=== PATIENT | male | born 1985 | race Caucasian/White ===

== ENCOUNTER 2017-10-20 07:10 | Observation (INO) | payer OTHER ==
--- NOTE | 2017-10-17 15:31 | PREOP HP ---
DATE OF SERVICE: 10/20/2017 HISTORY OF PRESENT ILLNESS: The patient is a pleasant 32-year-old who is having difficulty with left shoulder pain. He notes numb and tingling sensation, which radiates into his left forearm, down into his left thumb and index finger. He said he has had problems with neck and left arm pain in 2013 and underwent a cervical epidural steroid injections and improved. Again in 2017, the problem began again and became more severe. In addition to the pain in his left arm, he now also notices problems with his left medial scapular region. There has been no inciting event. Before epidural steroid injections, he rated his pain as a 9/10. Currently, turning his head to the right increases his pain. He said the left upper extremity also increases his pain. He has been taking Tylenol and Lortab. He had physical therapy in the past for this problem as well as chiropractic treatment. More recently, he has had epidural steroid injections. PAST MEDICAL HISTORY: Hypertension. PAST SURGICAL HISTORY: T and A and turbinate reduction in 2013. FAMILY HISTORY: Heart problem/disease and hypertension. SOCIAL HISTORY: Self-employed as a dias/rancher. . Exercises weekly. Denies substance abuse. Denies tobacco use. Drinks alcohol 1-2 times per week. Drinks coffee daily. ALLERGIES: TO SHELLFISH. CURRENT MEDICATIONS: Tylenol and Lortab. REVIEW OF SYSTEMS: A 12-point review of systems was obtained and is noncontributory except for that mentioned above. PHYSICAL EXAMINATION: NEUROSURGERY EXAMINATION: GENERAL APPEARANCE: Alert, pleasant, no acute distress. HEAD: Normocephalic, atraumatic. NECK AND THYROID: [id number] tenderness with palpation of posterior cervical region. SKIN: Warm and dry. MUSCULOSKELETAL: Cervical paraspinal muscle bulk is normal, cervical range of motion is restricted, normal range of motion of the upper extremities bilaterally. EXTREMITIES: No clubbing, cyanosis or edema. NEUROLOGIC: Alert and oriented x 3, normal recent and remote memory. Strength 5/5 in bilateral upper and lower extremities except for 4+/5 strength in his left biceps and left deltoid. Sensory is intact to light touch in the upper and lower extremities except for decrease involving his left thumb and index finger, reflexes were trace and symmetric in the upper and lower extremities bilaterally, normal gait. IMAGING: Reviewed. I reviewed his cervical MRI scan. On that study, there was a large left posterior paracentral disk protrusion at C5-C6 which is associated with moderate stenosis in the left side and severe left neural foraminal narrowing. ASSESSMENT: 1. Cervical disk disorders at C5-C6 with radiculopathy. 2. Cervicalgia. 3. Spinal stenosis, cervical region. PLAN: Primarily, the problems at C5-C6 are responsible for his left cervical radiculopathy, which is severe. He does have left arm weakness. He has failed conservative measures. The problem has been present for several years intermittently. I recommended an anterior cervical surgery. I told him that I thought an artificial disk operation, if it could be performed, will be best for him. He is 32 years of age. He understands. He would like to go ahead. We will make the arrangements. EDELMIRA RUSSELL MD DR: ALEIHSA/aide JOB#: [id number] / [id number]
[2017-10-20] VITALS (9 sets, daily range): BP systolic 134–160; BP diastolic 60–93
[~2017-10-20] VITALS: Ht 200.7 cm; Wt 136.1 kg
[~2017-10-20 07:10] MED LIST: ACET500T68 PO; BUPIVAC MPF-EPI 0.5%-1:200000 30 ML VIAL. ONE; GELATIN SPONGE SIZE 100. ONE; HYDROmorphone 2 MG/ML VIAL IV PRN; IBUP-1060 PO; IV RINGERS,LACTATED 1000ML 1,000 ML IV SCH; LIDOCAINE 1% PF 2 ML VIAL. ID PRN; LORA10TA3 PO; MORPHINE SULFATE 2 MG/ML DISP.SYRIN. IV PRN; ONDANSETRON PF 4 MG/2 ML VIAL. IV PRN; PROCHLORPERAZINE 10 MG/2 ML VIAL. IV PRN; THROMBIN TOPICAL 20,000 UNIT SPRAY.SYRN KIT TP ONE; fentaNYL PF VIAL 100 MCG/2 ML VIAL IV PRN
[2017-10-20] MEDS ORDERED: BACITRACIN 50,000 UNIT in IV NORMAL SALINE 1000ML BAG 1,000 ML IRR ONE (08:00)
[2017-10-20] MEDS ORDERED: PROPOFOL 100 ML IV ONE (08:00)
[2017-10-20] MEDS ORDERED: ceFAZolin 2GM PREMIX 2 GM/50 ML BAG IV ONE (08:00)
[2017-10-20] MEDS ORDERED: DESFLURANE > 120 MINUTES IH ONE (08:08)
[2017-10-20] MEDS ORDERED: GLYCOPYRROLATE 1 MG/5 ML VIAL. ONE (08:09)
[2017-10-20] MEDS ORDERED: NEOSTIGMINE METHYLSULFATE 5 MG/5 ML SYRINGE. ONE (08:09)
[2017-10-20] MEDS ORDERED: DEXAMETHASONE SOD PHOS 20 MG/5 ML VIAL. ONE (08:09)
[2017-10-20] MEDS ORDERED: LIDOCAINE 2% PF Vial for OR 5 ML VIAL. ONE (08:09)
[2017-10-20] MEDS ORDERED: ROCURONIUM 50 MG/5 ML VIAL. ONE (08:09)
[2017-10-20] MEDS ORDERED: ONDANSETRON PF 4 MG/2 ML VIAL. ONE (08:09)
[2017-10-20] MEDS ORDERED: PROPOFOL 20 ML IV ONE (08:09)
[2017-10-20] MEDS ORDERED: REMIFENTANIL 2 MG VIAL. IV ONE (08:09)
[2017-10-20] MEDS ORDERED: fentaNYL PF VIAL 100 MCG/2 ML VIAL ONE ×2 (08:09→12:44)
[2017-10-20] MEDS ORDERED: MIDAZOLAM HCL/PF 2 MG/2 ML VIAL. ONE (08:09)
[2017-10-20] MEDS ORDERED: PHENYLEPHRINE 10 MG/ML VIAL. ONE (08:10)
[2017-10-20] MEDS ORDERED: 0.9 % SODIUM CHLORIDE 50 ML VIAL. IJ ONE (08:10)
[2017-10-20] MEDS ORDERED: REMIFENTANIL 1 MG VIAL. IV ONE (10:13)
[2017-10-20] MEDS ORDERED: PROPOFOL 50 ML IV ONE (10:13)
[2017-10-20] MEDS: fentaNYL PF VIAL 100 MCG/2 ML VIAL IV PRN ×2 (13:00→13:32)
[2017-10-20] MEDS ORDERED: POTASSIUM CL 20MEQ D5-0.45NACL 1,000 ML IV SCH (13:05)
[2017-10-20] MEDS ORDERED: ZOLPIDEM 5 MG TABLET. PO PRN (13:15)
[2017-10-20] MEDS ORDERED: ACETAMINOPHEN 325 MG TABLET. PO PRN (13:15)
[2017-10-20] MEDS ORDERED: diphenhydrAMINE HCL 25 MG CAPSULE PO PRN (13:15)
[2017-10-20] MEDS ORDERED: ONDANSETRON PF 4 MG/2 ML VIAL. IV PRN (13:15)
[2017-10-20] MEDS ORDERED: CALCIUM CARBONATE 500 MG TAB.CHEW PO PRN (13:15)
[2017-10-20] MEDS ORDERED: MAGNESIUM HYDROXIDE 2,400 MG/30 ML ORAL.SUSP. PO PRN (13:15)
[2017-10-20] MEDS ORDERED: 0.9 % SODIUM CHLORIDE 10 ML DISP.SYRIN. IV PRN (13:15)
[2017-10-20] MEDS ORDERED: fentaNYL PF VIAL 100 MCG/2 ML VIAL IV PRN ×2 (13:15)
[2017-10-20] MEDS ORDERED: MAG HYDROX/ALUMINUM HYD/SIMETH 30 ML ORAL.SUSP PO PRN (13:15)
[2017-10-20] MEDS ORDERED: HYDROcodone/APAP 7.5/325MG 1 TAB TABLET PO PRN ×2 (13:15)
[2017-10-20] MEDS ORDERED: diphenhydrAMINE 50 MG/ML VIAL IV PRN (13:15)
[2017-10-20] MEDS: METHOCARBAMOL 750 MG TABLET PO SCH ×2 (14:17→20:25)
[2017-10-20] MEDS ORDERED: FLU VACC QS2017-18 (36MOS+)/PF 0.5 ML SYRINGE. VAX IM ONE (16:00)
[2017-10-20] MEDS: ceFAZolin SODIUM IV Push 1 GM VIAL. IVP SCH (16:20)
[2017-10-20] MEDS ORDERED: ceFAZolin SODIUM 1 GM in IV DEXTROSE 5% 50 ML IV SCH (17:30)
[2017-10-20] MEDS: DOCUSATE SODIUM 100 MG CAPSULE. PO SCH (20:25)
[2017-10-20] MEDS ORDERED: INFLUENZA VAX SCREEN BY RX. MC ONE (21:00)
[2017-10-21] MEDS: ceFAZolin SODIUM IV Push 1 GM VIAL. IVP SCH ×2 (02:31→07:41)
[2017-10-21 02:41] VITALS: BP 133/77
[2017-10-21 07:33] VITALS: BP 123/85
[2017-10-21] MEDS: METHOCARBAMOL 750 MG TABLET PO SCH (07:53)
[2017-10-21] MEDS: DOCUSATE SODIUM 100 MG CAPSULE. PO SCH (07:53)
--- NOTE | 2017-10-21 10:01 | DISCH ---
DISCHARGE INSTRUCTIONS Condition on Discharge Condition on Discharge: Stable Activity After Discharge Activity Instructions for Disc: Activity as tolerated, Avoid exertion Other activity instructions: no driving for a week Bathing Instructions: Shower-keep dressing dry Lifting Instructions after Dis: No heavy lifting, No pulling or pushing, Do not lift >10 pounds Diet after Discharge Additional Diet Restrictions: resume home diet Wound Incision Care Wound/Incision Care: Ice to area for comfort Other wound/incision instructi: may remove dressing in 48 hrs if dry then may shower- no soaking Contacting the after DC Call your doctor for: Concerns you may have Follow-Up Follow up with: Dr. Russell's nurse in 2 weeks [phone] EDELMIRA RUSSELL MD Oct 21, 2017 10:01
[2017-10-21] MEDS ORDERED: DOCU-109 PO (10:03)
[2017-10-21] MEDS ORDERED: HYDR-2762 PO (10:03)
[2017-10-21] MEDS ORDERED: METH750T2 PO (10:03)
--- NOTE | 2017-10-21 10:07 | PDOC ---
PROGRESS NOTES Subjective Subjective up ambulating in [place] feels good mild tightness in neck and shoulders Objective Objective Vital Signs Date Time Temp Pulse Resp B/P (MAP) Pulse Ox O2 Delivery O2 Flow Rate FiO2 10/21/17 07:33 98.2 69 123/85 (98) 95 Room Air 98.2 10/21/17 02:41 18 10/20/17 13:40 1.0 Intake and Output 10/21/17 07:00 Intake Total 2240 ml Output Total 300 ml Balance 1940 ml Intake Oral 2240 ml Output Urine Total 300 ml # Voids 7 Physical Exam General: Alert, Oriented X3, Cooperative MUSCULOSKELETAL: Other (MOODY) Neuro: Normal speech Skin: Other (dressing C,D,I, flat) Plan Plan of Care may dc home f/u 2 weeks Comment Review of Relevant I have reviewed the following items lori (where applicable) has been applied. Medications Current Medications Ondansetron HCl (Zofran) 4 mg PRN Q6HRS PRN IV NAUSEA/VOMITING; Start at 07:00; Stop 10/21/17 at 06:59; Status DC Fentanyl Citrate (Fentanyl 2ml Vial) 25 mcg PRN Q5MIN PRN IV MILD PAIN; Start 10/20/17 at 07:00; Stop 10/21/17 at 06:59; Status DC Fentanyl Citrate (Fentanyl 2ml Vial) 50 mcg PRN Q5MIN PRN IV MODERATE PAIN Last administered on 10/20/17 13:00; Start 10/20/17 at 07:00; Stop 10/21/17 at 06:59; Status DC Morphine Sulfate 1 mg PRN Q10MIN PRN IV SEVERE PAIN; Start 10/20/17 at 07:00; Stop 10/21/17 at 06:59; Status DC Ringer's Solution 1,000 ml @ 0 mls/hr Q0M IV Last administered on 10/20/17 07:51; Start 10/20/17 at 07:00; Stop 10/20/17 at 18:59; Status DC Lidocaine HCl (Xylocaine-Mpf 1% Vial) 2 ml PRN 1X PRN ID PRIOR TO IV START; Start 10/20/17 at 07:00; Stop 10/21/17 at 06:59; Status DC Hydromorphone HCl (Dilaudid) 0.5 mg PRN Q10MIN PRN IV SEV PAIN, Second choice; Start 10/20/17 at 07:00; Stop 10/21/17 at 06:59; Status DC Prochlorperazine Edisylate (Compazine) 5 mg PACU PRN PRN IV NAUSEA, MRX1; Start 10/20/17 at 07:00; Stop 10/21/17 at 06:59; Status DC Bacitracin 86095 unit/Sodium Chloride 1,000 ml @ 1,000 mls/hr 1X PERIOP ONCE IRR Last administered on 10/20/17 09:56; Start 10/20/17 at 08:00; Stop 09/26 at 08:59; Status DC Cefazolin Sodium/ Dextrose 50 ml @ 100 mls/hr 1X PREOP PRN IV PRIOR TO SURGERY Last administered on 10/20/17 09:23; Start 10/20/17 at 08:00 Gelatin (Gelfoam Size 100) 1 each STK-MED ONCE .ROUTE Last administered on 09:56; Start 10/20/17 at 07:02; Stop 10/20/17 at 07:03; Status DC Bupivacaine HCl/ Epinephrine Bitart (Sensorcain-Mpf Epi 0.5%-1:070116) 30 ml STK -MED ONCE .ROUTE Last administered on 10/20/17 09:56; Start 10/20/17 at 07: 03; Stop 10/20/17 at 07:04; Status DC Thrombin 20,000 unit STK-MED ONCE TP Last administered on 10/20/17 09:56; Start 10/20/17 at 07:03; Stop 10/20/17 at 07:04; Status DC Propofol 100 ml @ As Directed STK-MED ONCE IV ; Start 10/20/17 at 08:00; Stop 10/20/17 at 08:02; Status DC Desflurane (Suprane) 90 ml STK-MED ONCE IH ; Start 10/20/17 at 08:08; Stop 09/26 at 08:09; Status DC Midazolam HCl (Versed) 2 mg STK-MED ONCE .ROUTE ; Start 10/20/17 at 08:09; Stop 10/20/17 at 08:10; Status DC Fentanyl Citrate (Fentanyl 2ml Vial) 100 mcg STK-MED ONCE .ROUTE ; Start at 08:09; Stop 10/20/17 at 08:10; Status DC Remifentanil HCl (Ultiva) 2 mg STK-MED ONCE IV ; Start 10/20/17 at 08:09; Stop 10/20/17 at 08:10; Status DC Glycopyrrolate (Robinul) 1 mg STK-MED ONCE .ROUTE ; Start 10/20/17 at 08:09; Stop 10/20/17 at 08:10; Status DC Neostigmine Methylsulfate 5 mg STK-MED ONCE .ROUTE ; Start 10/20/17 at 08:09; Stop 10/20/17 at 08:10; Status DC Rocuronium Gill (Zemuron) 50 mg STK-MED ONCE .ROUTE ; Start 10/20/17 at 08: 09; Stop 10/20/17 at 08:10; Status DC Propofol 20 ml @ As Directed STK-MED ONCE IV ; Start 10/20/17 at 08:09; Stop 10/20/17 at 08:10; Status DC Lidocaine HCl (Lidocaine Pf 2% Vial) 5 ml STK-MED ONCE .ROUTE ; Start 10/20/17 at 08:09; Stop 10/20/17 at 08:10; Status DC Dexamethasone Sodium Phosphate (Decadron) 20 mg STK-MED ONCE .ROUTE ; Start 09/26 at 08:09; Stop 10/20/17 at 08:10; Status DC Ondansetron HCl (Zofran) 4 mg STK-MED ONCE .ROUTE ; Start 10/20/17 at 08:09; Stop 10/20/17 at 08:10; Status DC Phenylephrine HCl (Vaughn-Synephrine Inj) 10 mg STK-MED ONCE .ROUTE ; Start at 08:10; Stop 10/20/17 at 08:11; Status DC Sodium Chloride (Sodium Chloride) 50 ml STK-MED ONCE IJ ; Start 10/20/17 at 08: 10; Stop 10/20/17 at 08:11; Status DC Cefazolin Sodium 50 ml @ As Directed STK-MED ONCE IV ; Start 10/20/17 at 09:42 ; Stop 10/20/17 at 09:43; Status DC Propofol 50 ml @ As Directed STK-MED ONCE IV ; Start 10/20/17 at 10:13; Stop 10/20/17 at 10:14; Status DC Remifentanil HCl (Ultiva) 1 mg STK-MED ONCE IV ; Start 10/20/17 at 10:13; Stop 10/20/17 at 10:14; Status DC Fentanyl Citrate (Fentanyl 2ml Vial) 100 mcg STK-MED ONCE .ROUTE ; Start at 12:44; Stop 10/20/17 at 12:45; Status DC Fentanyl Citrate (Fentanyl 2ml Vial) 50 mcg PRN Q2HR PRN IV PAIN; Start at 13:15 Fentanyl Citrate (Fentanyl 2ml Vial) 25 mcg PRN Q2HR PRN IV PAIN; Start at 13:15 Acetaminophen/ Hydrocodone Bitart (Lortab 7.5/325) 1 tab PRN Q6HRS PRN PO PAIN ; Start 10/20/17 at 13:15 Acetaminophen/ Hydrocodone Bitart (Lortab 7.5/325) 2 tab PRN Q6HRS PRN PO PAIN Last administered on 10/20/17t 22:39; Start 10/20/17 at 13:15 Acetaminophen (Tylenol) 650 mg PRN Q6HRS PRN PO MILD PAIN / TEMP; Start at 13:15 Al Hydroxide/Mg Hydroxide (Mylanta Plus Xs) 30 ml PRN Q3HRS PRN PO HEARTBURN / GAS; Start 10/20/17 at 13:15 Calcium Carbonate/ Glycine (Tums) 500 mg PRN Q3HRS PRN PO INDIGESTION; Start 10/20/17 at 13:15 Diphenhydramine HCl (Benadryl) 25 mg PRN Q6HRS PRN PO ITCHING; Start 10/20/17 at 13:15 Diphenhydramine HCl (Benadryl) 25 mg PRN Q6HRS PRN IV ITCHING; Start 10/20/17 at 13:15 Zolpidem Tartrate (Ambien) 5 mg PRN QHS PRN PO INSOMNIA, MAY REPEAT IN 1HR; Start 10/20/17 at 13:15 Sodium Chloride (Normal Saline Flush) 3 ml QSHIFT PRN IV AFTER MEDS AND BLOOD DRAWS; Start 10/20/17 at 13:15 Potassium Chloride/Dextrose/ Sod Cl 1,000 ml @ 75 mls/hr [id number] IV ; Start at 13:05; Stop 10/20/17 at 16:56; Status DC Methocarbamol (Robaxin) 750 mg TID PO Last administered on 10/21/17 07:53; Start 10/20/17 at 14:00 Docusate Sodium (Colace) 100 mg BID PO Last administered on 10/21/17 07:53; Start 10/20/17 at 21:00 Magnesium Hydroxide (Milk Of Magnesia) 2,400 mg PRN Q12HR PRN PO CONSTIPATION; Start 10/20/17 at 13:15 Ondansetron HCl (Zofran) 4 mg PRN Q6HRS PRN IV NAUESA, 1ST CHOICE; Start 10/20 at 13:15 Cefazolin Sodium 1 gm/Dextrose 50 ml @ 100 mls/hr Q8H IV ; Start 10/20/17 at 17:30; Stop 10/21/17 at 09:59; Status Cancel Cefazolin Sodium (Ancef) 1 gm Q8H IVP Last administered on 10/21/17 07:41; Start 10/20/17 at 17:30; Stop 10/21/17 at 09:31; Status DC Info (Do NOT chart on this placeholder) 1 each 1X ONCE MC ; Start 10/20/17 at 21:00; Stop 10/20/17 at 21:01; Status UNV Influenza Virus Vaccine Quadrival (Fluarix Quad 6797-1293 Syringe) 0.5 ml ONCE ONCE VAX IM Last administered on 10/21/17 08:01; Start 10/20/17 at 16:00; Stop 10/20/17 at 16:01; Status DC Active Scripts Active Reported Acetaminophen 500 Mg Tablet 1,000 Mg PO Vitals/I & O Vital Sign - Last 24 Hours 10/20/17 10/20/17 10/20/17 10/20/17 12:15 12:30 12:45 13:00 Temp 97.6 97.6 Pulse 80 70 68 69 Resp 16 16 16 16 B/P (MAP) 119/95 147/96 153/85 156/70 Pulse Ox 98 93 94 96 O2 Delivery Simple Mask Room Air Nasal Cannula Nasal Cannula O2 Flow Rate 10 2 2 12/11/17 12/11/17 12/11/17 12/11/17 13:15 13:40 13:40 14:00 Temp 98.0 98.0 Pulse 74 75 18 Resp 16 20 B/P (MAP) 142/84 139/80 (99) 144/93 (110) Pulse Ox 95 93 O2 Delivery Room Air Nasal Cannula Nasal Cannula Room Air O2 Flow Rate 1.0 1.0 10/20/17 10/20/17 10/20/17 10/20/17 14:00 14:30 15:00 15:29 Pulse 78 75 85 78 Resp 16 16 16 B/P (MAP) 148/91 (110) 158/88 (111) 141/93 (109) Pulse Ox 95 O2 Delivery Room Air Room Air Room Air 10/20/17 10/20/17 10/20/17 10/20/17 16:00 16:17 18:20 20:00 Temp 98.3 98.3 Pulse 80 82 81 Resp 16 B/P (MAP) 144/93 (110) 134/75 (94) 155/86 (109) Pulse Ox 95 O2 Delivery Room Air Room Air 10/20/17 10/20/17 10/20/17 10/21/17 22:39 22:45 23:45 02:41 Temp 98.3 97.8 98.3 97.8 Pulse 95 85 Resp 18 18 18 B/P (MAP) 160/60 (93) 133/77 (95) Pulse Ox 95 93 93 O2 Delivery Room Air Room Air Room Air Room Air 10/21/17 07:33 Temp 98.2 98.2 Pulse 69 B/P (MAP) 123/85 (98) Pulse Ox 95 O2 Delivery Room Air Intake and Output 10/20/17 10/20/17 10/21/17 15:00 23:00 07:00 Intake Total 1000 ml 1240 ml Output Total 300 ml Balance 700 ml 1240 ml EDELMIRA RUSSELL MD Oct 21, 2017 10:07
--- NOTE | 2017-10-22 16:22 | PATHOLOGY ---
PATHOLOGY REPORT * * * * * * * * FINAL DIAGNOSIS: Cartilaginous tissue, cervical disc: - Degenerative changes. COMMENT: There is no evidence of an acute inflammatory process or malignancy. (JPM:db; 10/22/2017) REPORT ELECTRONICALLY SIGNED BY: Nathaniel Horton M.D. DATE/TIME: 10/22/2017 16:22 * * * * * * * * GROSS PATHOLOGY: Received in formalin labeled "Zev Adan cervical disc," are multiple segments of sinha-white, rubbery and gritty tissue measuring 2.8 x 2.6 x 0.4 cm in aggregate dimensions. The tissue is filtered and submitted entirely in cassette A1, following decalcification. (TSD; 10/20/2017) INITIAL CPT CODE(S): A; 40389, 36097 Professional services [place] [place] [address] Technical services performed by [facility] at [address] [place] [address], [facility] [address], [place] [address]. SPECIMEN(S) RECEIVED: A.Cervical disc CLINICAL HISTORY: Herniated cervical disc with radiculopathy, stenosis PATIENT: ZEV ADAN /AGE: 301/30/1985 (Age: 32) PATIENT #: [id number] ALT CASE #: SPECIMEN COLLECTION DATE: 10/20/2017 SPECIMEN RECEIVED DATE: 10/20/2017 [facility] - [address] [place] [address] - PHONE: [phone] * * * END OF REPORT * * *
--- NOTE | 2017-10-27 20:13 | OP ---
DATE OF SURGERY: 10/20/2017 PREOPERATIVE DIAGNOSIS: Herniated cervical disk, C5-C6 with left cervical radiculopathy and weakness. POSTOPERATIVE DIAGNOSIS: Herniated cervical disk, C5-C6 with left cervical radiculopathy and weakness. OPERATION PERFORMED: 1. Anterior cervical microdiskectomy C5-C6. 2. Anterior cervical disk arthroplasty, C5-C6 of the operation was done with multimodality monitoring including EMG, SSEP, NIMs, MEP, fluoroscopy and microscopy were also used. TAKER OFF BRAKER MACHINE: Cesar Abbott M.D., assisted with the surgery, assisted with the exposure diskectomy, the arthroplasty and the closure. OPERATIVE INDICATIONS: The patient is a very pleasant 32-year-old man who developed intractable neck and left arm pain and weakness of his left arm which failed conservative measures. On imaging studies, he had the above-mentioned findings and I recommended a disk arthroplasty. I spoke with him about the surgery, the risks, the technique and expected postoperative course and he wished to go ahead. DESCRIPTION OF PROCEDURE: Following general endotracheal anesthesia, the patient was positioned supine on the operating room table in a neutral position. The anterior cervical region was prepped and draped in standard fashion. KATELYNN hose and AV impulse boots were applied for DVT prophylaxis. The microscope was draped. Fluoroscopy was draped and brought in the field. Monitoring was established. Ancef at 3 grams was given less than 1 hour prior to initiation of surgery under fluoroscopic guidance, incision was made from the midline around to the right side in a skin crease. I dissected down through the skin and subcutaneous tissue and then sharply divided the platysma and then dissected around the medial aspect of the sternocleidomastoid and carotid artery sheath down to the anterior cervical vertebral bodies. I placed anterior cervical retractors, which were wedged in the longus colli muscle. I placed distraction pins in C5 and C6. I brought in the microscope and the remainder of surgery done with a microscope using microscopic technique. I gently distracted the disk space was incised the annulus and then performed a diskectomy with pituitary rongeurs. As I worked, the region became very well decompressed. I used a high speed air drill and drilled posteriorly and trimmed away the posterior spurring and then opened the ligament and removed the annulus and ligament using a combination of the arachnoid knife and micro blunt hook as well as a 1 and 2 mm micro Kerrison's. I explored carefully and I removed the disk herniation on the left side, which was partly calcified and partly for soft disk and as I worked, the entire region became very well decompressed. I then measured and placed a 16 mm trial. I did to use AP and lateral images to confirm my positioning and then made for small drill openings in the inferior portion of C5 and superior portion of C6 and then gently brought in the 16 mm artificial disk. I gently tapped this down and without difficulty aligning with the S4 drill holes and gently tapped the disk in good position without any difficulty in the proper orientation. I obtained AP and lateral films and I felt I needed to further tapped into the artificial disk and slightly further and this was done very gently and at this point, then I felt I had excellent fixation of the disk arthroplasty construct. Hemostasis was excellent. The distraction pins had earlier been removed and bone wax was used to close their openings. The anterior spurring had been smoothed away prior to placement of the disk arthroplasty construct and the images looked perfect. I irrigated copiously. I had excellent hemostasis and removed retractor. I assured myself of excellent hemostasis in the surgical bed and then I closed the wound in layers with absorbable suture including closing the platysma as a separate layer and the skin was closed with a 4-0 subcuticular stitch. Operation went very well and the patient was taken uneventfully to recovery room and was quite pleased with the surgery. EDELMIRA RUSSELL MD DR: ALEISHA/aide JOB#: [id number] / [id number]
== END 2017-10-21 11:00 | disposition home or self-care (01) ==
LOC: SURG 07:10 → 4 SOUTHEST 13:05
PROVIDERS: ADMIT Neurological Surgery; ATTEND Neurological Surgery
DX: M50.122 Cervical disc disorder at C5-C6 level with radiculopathy (principal); I10 Essential (primary) hypertension; Z82.49 Family history of ischemic heart disease and other diseases of the circulatory system; F10.10 Alcohol abuse, uncomplicated
CPT/HCPCS: 22856; 76000; 88304; 88311; 90471; 90686; 96374; 96376; 97162; 97530; C1713; G0378; G0379; G8978; G8979; G8980; J0690; J1100; J2250; J2405; J2704; J2710; J3010; J3490; J7030; J7120; J2001